=== PATIENT | female | born 1985 | race Caucasian/White ===

== ENCOUNTER 2023-03-16 11:52 | Outpatient (RCR) | payer OTHER, SELFPAY | END 2023-03-16 23:59 | disposition home or self-care (01) | LOC: RPT 11:52 | PROVIDERS: ATTENDING PHYSICIAN Internal Medicine; PRIMARYCARE PHYSICIAN Internal Medicine | DX: M62.89 Other specified disorders of muscle (principal); K59.00 Constipation, unspecified; N39.3 Stress incontinence (female) (male); R10.2 Pelvic and perineal pain | CPT/HCPCS: 97112; 97140; 97530 ==

== ENCOUNTER → 2023-10-20 18:43 | Outpatient (REF) | payer OTHER, SELFPAY | LOC: RAD 18:43 | PROVIDERS: ATTENDING PHYSICIAN Nurse Practitioner Adult Health | DX: U07.1 COVID-19 (principal) | CPT/HCPCS: 71046 ==

== ENCOUNTER → 2023-11-07 13:39 | Outpatient (REF) | payer OTHER, SELFPAY | LOC: RAD 13:39 | PROVIDERS: ATTENDING PHYSICIAN Nurse Practitioner Adult Health | DX: J18.9 Pneumonia, unspecified organism (principal) | CPT/HCPCS: 71046 ==

== ENCOUNTER → 2025-02-25 12:51 | Outpatient (REF) | payer OTHER, SELFPAY | LOC: RAD 12:51 | PROVIDERS: ATTENDING PHYSICIAN General Practice; FAMILY PHYSICIAN Nurse Practitioner Adult Health; OTHER PHYSICIAN Physician Assistant Surgical | DX: R22.0 Localized swelling, mass and lump, head (principal) | CPT/HCPCS: 76536 ==